=== PATIENT | female | born 1950 | race Caucasian/White ===

== ENCOUNTER → 2022-10-06 10:40 | Outpatient (CLI) | payer MEDICARE, SELFPAY ==
--- NOTE | 2022-10-06 10:42 | US_ITS ---
FINAL REPORT CLINICAL HISTORY: pelvic pain FINDINGS: Transvaginal Ultrasound Technique: Transvaginal sonographic images of the pelvis were obtained. Findings: The uterus is normal in size. There is endometrial fluid. There is a 6 mm nodule in the endometrium. The right ovary is unremarkable. The left ovary is unremarkable. There is no significant free fluid. IMPRESSION: 6 mm nodule in the endometrium could represent endometrial polyp or other mass. Reviewed, Interpreted and Dictated by Elijah Pardo III, MD Transcribed by Alonso Ellis Authenticated and [facility]
== END ==
PROVIDERS: PCP Internal Medicine Cardiovascular Disease; Visit Provider Obstetrics & Gynecology
DX: R10.2 Pelvic and perineal pain (principal)
CPT/HCPCS: 76830

== ENCOUNTER 2023-08-28 10:59 | Outpatient (CLI) | payer MEDICARE, SELFPAY ==
[2023-08-28 11:23] LABS: Basophils # 0.1 K/mm3 (0-0.2); Basophils % 1.1 % (0.1-2.0); Eosinophils % 0.5 % (0.1-12.0); Hematocrit 45.8 % (37.0-47.0); Hemoglobin 14.5 g/dL (12.2-16.2); Lymphocytes # 1.4 K/mm3 (0.7-4.5); Lymphocytes % 23.7 % (10-50); Mean Corpuscular HGB Conc 31.7 g/dL (31.8-35.4); Mean Corpuscular Hemoglobin 33.1 pg (27.0-31.2); Mean Corpuscular Volume 104.6 fl (81-99); Mean Platelet Volume 8.6 fl (7.4-10.4); Monocytes # 0.3 K/mm3 (0.1-1.0); Monocytes % 5.6 % (1.7-9.3); Neutrophils # 3.9 K/mm3 (1.8-7.8); Neutrophils % 69.2 % (37.0-80.0); Platelet Count 192 K/mm3 (142-424); Red Blood Count 4.38 M/mm3 (4.20-5.40); Red Cell Distribution Width 14.1 % (11.5-17.5); White Blood Count 5.7 K/mm3 (4.8-10.8)
[2023-08-28 12:18] LABS: Alanine Aminotransferase 16 U/L (12-78); Albumin Level 4.7 g/dl (3.5-5.0); Albumin/Globulin Ratio 1.9 (1.1-1.8); Alkaline Phosphatase 78 U/L (38-126); Anion Gap 11.4 mEq/L (5-15); Aspartate Amino Transferase 28 U/L (14-36); Bilirubin,Total 1.2 mg/dl (0.2-1.3); Blood Urea Nitrogen 20 mg/dl (7-17); Calcium 10.3 mg/dl (8.4-10.2); Carbon Dioxide 27 mmol/L (22.0-30.0); Chloride 102 mmol/L (98-107); Estimated Glomerular Filt Rate 61 ml/min (>60); GFR (African American) 74 ML/MIN (>60); Globulin 2.5 g/dL (1.3-3.2); Glucose 100 mg/dl (74-100); Potassium 4.4 mmoL/L (3.5-5.1); Sodium 136 mmol/L (136-145); Total Protein,Serum 7.2 g/dl (6.3-8.2)
== END 2023-08-28 23:59 | disposition home or self-care (01) ==
LOC: LAB 11:00
PROVIDERS: PCP Family Medicine; Visit Provider Obstetrics & Gynecology
DX: R93.89 Abnormal findings on diagnostic imaging of other specified body structures (principal)
CPT/HCPCS: 36415; 80053; 85025

== ENCOUNTER 2023-09-02 05:57 | Day surgery (SDC) | payer MEDICARE, BC, SELFPAY ==
[2023-09-02] VITALS (9 sets, daily range): BP systolic 128–167; BP diastolic 71–98; PULSE 65–89; RESP 16–20; TEMP 36.1–36.6; O2SAT 94–99; BMI 25.7
[2023-09-02] MEDS: ACETAMINOPHEN 500MG TAB 1000 MG PO (06:33)
[2023-09-02] MEDS: LACTATED RINGERS 1000ML 1,000 ML 25 ML IV (06:33)
--- NOTE | 2023-09-02 06:51 | EXP.ANES.CKL ---
[facility] Disclaimer: The information contained in this section may have been updated after the patient was seen, as this information can be updated by other users. Medical History Abnormal pelvic ultrasound 6 mm endometrial nodule Follow-up exam Irritation of vulva Vaginal Discharge Hypertension Osteoporosis High cholesterol History of hypertension Surgical History History of hernia repair Family History Father Cancer lung Grandfather Cerebral hemorrhage Mother Hypertension High cholesterol Grandmother CHF (congestive heart failure) Social History Smoking Status: Never smoker alcohol intake: current substance use type: denies use current occupational status: retired Travel in the last 8 weeks: None [facility] Anesthesia Checklist Patient Identification Patient Identification: Arm Band and Family Structural Data Admitted From: Home Planned Operative Procedure/s: Hystroscopy, D & C, Novasure Consent for Planned Operative Procedure(s) Verified: Yes Verified Documents: Surgical Consent and History and Physical NPO Status Verified Time NPO: 00:00 Additional verifications Patient : No Anesthesia Reactions: No Hx Blood Transfusions: No Cephalosporin Allergy: No Previous Colonoscopy: Yes Airway Assessment Mallampati Score:: Class II C-Spine Mobility Assessed: Yes TMJ Mobility Assessed: Yes Dentition: Good Dentition Neurological Assessment Level of Consciousness: Awake, Alert, Appropriate and Follows Commands Hx Seizures: No Numbness or tingling in extremities: No Anesthesia Plan Anesthesia Risk discussed: Yes ASA Class: II Anesthesia Type: General Preoperative Comments Pre-Operative Comments: Loose [place], (Left upper??)
--- NOTE | 2023-09-02 08:24 | P.PNANES_ITS ---
[facility] Anesthesia Record Part I Anesthesia Record I Intake, IV Amount: 700 Hydration: Adequate Estimated blood loss (mL): 5 Urine output (mL): 0 Blood Products used (#): none Blood Pressure: 128/71 SaO2: 97 Pulse Rate: 65 Airway Patency: Patent Respiratory Rate: 18 Temperature: 97 F Patient is:: Drowsy and Stable Stable to PACU at:: 08:19
--- NOTE | 2023-09-02 08:44 | EXP.OP.NOTE ---
Date of procedure: 09/02/23 Pre-op Diagnosis:: 1. Abnormal finding on pelvic ultrasound, nodule in the endometrium 2. Abnormal chronic vaginal discharge Post-op Diagnosis:: 1. Abnormal finding on pelvic ultrasound, nodule in the endometrium 2. Abnormal chronic vaginal discharge Procedure performed:: Hysteroscopy, dilation and Myosure Curettage Surgeon:: Guillermina Anthony DO [employer] Technician(s):: N/a TEST CARRIER:: Lokesh Reagan Anesthesia: GETA Estimated blood loss (mL): 5 Clinical Note:: Meg is a very pleasant 73 yo who presents to [facility] for scheduled surgery. She complains of vaginal discharge that has been present for a few years. She states it is sometimes ramon and sometimes brown. She has to wear a pad daily. She admits the discharge is getting more frequent and heavier. Discharge improved with use of Premarin and then returned. Vaginal ID demonstrated BV. She completed course of Metronidazole and temporarily discharge improved. Pelvic ultrasound 10/06/22 demonstrated 6 mm nodule in the endometrium. She delayed hysteroscopy D&C because she was having a cholecystectomy. Surgery was scheduled for June 2023 but she canceled because she couldn't make it for surgery. Vaginal ID 06/2023 was within normal limits. Operative findings:: 1. On bimanual exam, uterus was midposition, normal size and shape. No adnexal masses palpated 2. On hysteroscopic exam, bilateral tubal ostia easily visualized, small 5-6 mm white nodule noted on right side wall proximal to posterior wall. Otherwise, normal atrophic appearing scant endometrial tissue. Operative note:: Risks, benefits and alternatives were discussed with the patient. Risks include but are not limited to bleeding, infection, uterine perforation and VTE. Patient voiced understanding and agreed to proceed. She was wheeled back to the operating room and placed under general anesthesia without difficulty. She was placed in dorsal lithotomy position and prepped and draped in the normal sterile fashion. A bimanual exam was performed. A weighted Auvard was placed in the vaginal vault. Single tooth tenaculum was placed on anterior lip of the cervix. Uterus sounded to 7. Sequential Carlin dilators were used to dilate the cervical os. Hysteroscope was inserted through the cervix without difficulty. Endometrial cavity was evaluated. See findings above. Pictures were taken. Myosure was inserted through the hysteroscope. Myosure curettage was performed per protocol to remove nodule and then used in a 360 degree fashion under direct visualization to obtain a sample. A scant amount of tissue was obtained. Pictures were taken. Hysteroscope with Myosure was removed. Instruments were removed from the vagina. Tenaculum site was noted to be oozing. 2-0 Chromic was used to ligate the tenaculum site. Silver nitrate stick was also used for cauterization. Excellent hemostasis was noted. Patient was awaken from anesthesia without difficulty. She was transported to recovery room in stable condition. Patient will be discharged home when awake and ambulating. She was given postop instructions as well as instructions to follow-up in the office in 2 weeks. Condition: stable Disposition: same day Specimens:: 1. Endometrial curettings Complications:: None
--- NOTE | 2023-09-02 11:28 | EXP.ANES.II ---
[facility] Anesthesia Record Part II Anesthesia Record Part II Discharge Time: 08:50 Destination: Surgical Day Care (OP Surgery) PACU nurse assessment reviewed?: Yes Patient Condition:: Good Anesthesia Complications:: None Swallowing reflex intact?: Yes Airway Patency: Patent Cyanosis?: No Blood Pressure: 156/98 SaO2: 96 Respiratory Rate: 18 Pulse Rate: 77 Temperature: 97.5 F Mental Status: Alert & Oriented Pain level:: 0 Nausea and/or vomitting:: None Intake, IV Amount: 0 Hydration: Adequate
== END 2023-09-02 09:12 | disposition home or self-care (01) ==
PROVIDERS: Visit Provider Obstetrics & Gynecology
PROC: (CPT 58558; principal; 2023-09-02 07:30)
DX: R93.89 Abnormal findings on diagnostic imaging of other specified body structures (principal); N89.8 Other specified noninflammatory disorders of vagina; N85.8 Other specified noninflammatory disorders of uterus
CPT/HCPCS: 58558; 88305; J2405